=== PATIENT | male | born 1960 | race Caucasian/White ===

== ENCOUNTER 2017-10-14 08:19 | Day surgery (SDC) | payer MEDICAID ==
[2017-10-14] MEDS ORDERED: PROPOFOL 10 MG/ML VIAL IV ONE (08:20)
[2017-10-14] MEDS ORDERED: LIDOCAINE 2% MDV (20MG/ML) 20ML VIAL IV ONE (08:20)
--- NOTE | 2017-10-15 13:40 | Operative Note ---
DATE OF SURGERY: 10/14/2017 OPERATION: COLONOSCOPY to the cecum with cold snare polypectomy x2 and cold biopsy forceps polypectomy x2. INDICATION: Colorectal cancer screening. This is his first examination. ANESTHESIA: Intravenous sedation was administered by the department of anesthesiology and included Diprivan titrated to effect. PROCEDURE: Following informed consent from this alert individual including a discussion of the risks and benefits of the procedure and an opportunity for the patient to ask questions, the patient was in the left lateral decubitus position. A digital rectal examination was performed. No abnormalities were noted. Following this, the Olympus [id number] video colonoscope was inserted into the rectum without resistance. The rectal mucosa had a normal appearance with normal folds and distensibility. The instrument was advanced up through the bowel to the level of the cecum without much difficulty. Throughout the bowel the mucosa appeared normal, the folds were normal, and the bowel was fairly well distensible. There was some spasm noted in the sigmoid region. The cecum was defined by noting the appendiceal orifice and ileocecal valve. The colon preparation was good. Retroflexion was accomplished in the cecum and failed to demonstrate changes. From this point, the colonoscope was then withdrawn. In the transverse colon there was a 5 mm sessile polyp noted which was removed with cold snare polypectomy and suctioned through the colonoscope into a collection trap. There was a second 5 mm polyp noted in the descending colon likewise removed with cold snare polypectomy and recovered. There were 2 diminutive 3 mm polyps noted in the sigmoid colon each removed with biopsy forceps. A few small diverticula were seen in the sigmoid colon as well. The endoscope was then drawn back into the rectum where retroflexion was accomplished following air insufflation and failed to demonstrate significant change. The endoscope was straightened and removed. The patient tolerated the procedure well and was returned to the recovery area in stable condition. IMPRESSION: 1. A 5 mm polyp removed from the transverse colon with cold snare polypectomy. 2. A 5 mm polyp removed from the descending colon with cold snare polypectomy. 3. Two 3 mm sigmoid polyps removed with biopsy forceps. 4. Mild sigmoid diverticulosis. RECOMMENDATIONS: The patient was advised he should receive a copy of his pathology report at home in the next 2-3 weeks. If not, he was asked to call my office to review the results of testing today. Further recommendations forthcoming pending those results. Followup will be with BRIAN Becerril. As always, thank you for allowing me to participate in the care of your patient. CC: BRIAN Becerril
== END 2017-10-14 10:45 | disposition home or self-care (01) ==
LOC: HOP 08:19
PROVIDERS: ATTEND Internal Medicine Gastroenterology
DX: Z12.11 Encounter for screening for malignant neoplasm of colon (principal); D12.3 Benign neoplasm of transverse colon; D12.4 Benign neoplasm of descending colon; D12.5 Benign neoplasm of sigmoid colon; E78.00 Pure hypercholesterolemia, unspecified; J44.9 Chronic obstructive pulmonary disease, unspecified

== ENCOUNTER 2019-04-21 09:09 | Day surgery (SDC) | payer MEDICAID ==
[~2019-04-21 09:09] MED LIST: ACETAMINOPHEN 1,000 MG/100 ML BTL IVPB ONE
[2019-04-21] MEDS ORDERED: FENTANYL PF 100MCG/2ML VIAL IV ONE (09:10)
[2019-04-21] MEDS ORDERED: PROPOFOL 10 MG/ML VIAL IV ONE (09:10)
[2019-04-21] MEDS ORDERED: LIDOCAINE 2% MDV (20MG/ML) 20ML VIAL IV ONE (09:10)
[2019-04-21] MEDS ORDERED: KETOROLAC 30 MG/ML VIAL IVP ONE (09:10)
[2019-04-21] MEDS ORDERED: RINGERS SOLUTION,LACTATED 1,000 ML IV ONE (09:40)
[2019-04-21] MEDS ORDERED: BETAMETHASONE 6 MG/1 ML 5ML VIAL IM ONE (10:21)
[2019-04-21] MEDS ORDERED: BUPIVACAINE 0.25% W/EPI MPF 30ML VIAL IM ONE (10:21)
--- NOTE | 2019-04-21 10:54 | Operative Note ---
DATE OF SURGERY: 04/21/2019 SURGEON: Cameron Rao D.O. REFERRING PHYSICIAN: Luciana Vaca N.P. PREOPERATIVE DIAGNOSIS: ADHESIVE CAPSULITIS OF THE RIGHT SHOULDER. POSTOPERATIVE DIAGNOSIS: ADHESIVE CAPSULITIS OF THE RIGHT SHOULDER. OPERATION: 1. MANIPULATION UNDER ANESTHESIA RIGHT SHOULDER. 2. INJECTION RIGHT SHOULDER. DESCRIPTION: This 58-year-old male was taken to the Operating Room and placed in the supine position on the operating room table. General anesthesia was introduced into the right upper extremity. It was taken through range of motion and found to be markedly restricted, forward flexion to about 90 degrees abduction to about 40 degrees external rotation limited to about 30 degrees, internal rotation to 30-40 degrees. Then with the glenohumeral joint stabilized with my right hand gentle manipulation of the right shoulder was accomplished by manipulating the shoulder to 120 degrees of abduction, 180 degrees of full flexion, and external rotation to 95 degrees internal rotation and 95 degrees full crossover with disruption of cicatrix being palpated during the manipulation. Once the manipulation had been completed we again took the shoulder through range of motion with the same full motion being identified and the anterior aspect of the shoulder was prepped with alcohol and a 22-gauge spinal needle was easily advanced into the glenohumeral joint and 2 ml of Celestone Soluspan and 4 ml of 0.25% Marcaine with epinephrine was injected without difficulty. The sterile bandage was applied and the patient was taken to the Recovery Room in satisfactory condition. GROSS PATHOLOGY: This patient demonstrated adhesive capsulitis of the right shoulder with limitation of motion found as described in the operative report. JOB NUMBER: [id number] MTDD
[2019-04-21] MEDS ORDERED: HYDROCODONE/APAP 5/325MG TABLET PO ONE (10:57)
== END 2019-04-21 11:15 | disposition home or self-care (01) ==
LOC: SUR 09:09
PROVIDERS: ATTEND Orthopaedic Surgery
DX: M75.01 Adhesive capsulitis of right shoulder (principal); E78.00 Pure hypercholesterolemia, unspecified; J44.9 Chronic obstructive pulmonary disease, unspecified; F17.210 Nicotine dependence, cigarettes, uncomplicated
CPT/HCPCS: J1885; J7120